=== PATIENT | female | born 1990 | race Caucasian/White ===

== ENCOUNTER 2018-06-12 15:56 | Emergency (ER) | payer MEDICAID ==
[2018-06-12 16:11] VITALS: BP 135/83
--- NOTE | 2018-06-12 16:47 | EDPHY ---
General Time Seen by Provider: 06/12/18 16:38 Narrative: CLINICAL IMPRESSION: Dentalgia ASSESSMENT/PLAN: 28-year-old otherwise healthy female presents with pain to her right upper incisor x1 week. No clinical signs to suggest gingival buccal abscess,ANUG, facial cellulitis or facial abscess. Patient will be treated with an antibiotic and pain medication. A referral to dental aid was provided. She has an appointment with a dentist but not until June 21 and I feel she needs dedicated dental x-rays prior to this. Warning signs return to ED sooner outlined and discharge. DIFFERENTIAL DX: Differential includes but not limited to periapical abscess, cavity, gingivitis , gingival buccal abscess, ANUG, facial cellulitis CHIEF COMPLAINT: Dental pain HPI: 28-year-old otherwise healthy female presents to the emergency department with atraumatic right upper incisor pain for the last week. Patient reports no trauma or recent dental injury or procedure. No facial swelling, erythema, warmth. Tolerating secretions well. No fevers or chills. She has an appointment with a dentist but not until June 21. PAST MEDICAL HISTORY: None reported See triage summary and nurse notes for addition applicable history Pertinent Past Surgical History: None reported Family History: Noncontributory Social History: Otherwise healthy nonsmoker REVIEW OF SYSTEMS: A full 10 point review of systems was negative except for those mentioned in HPI. PHYSICAL EXAM: General Appearance: Alert, oriented, appropriate, cooperative, NAD, well hydrated, non-toxic appearing, VSS, no hypoxia. HEENT: Oropharynx clear is no erythema or exudates, no tonsillar hypertrophy or asymmetry. Dentition without abnormality, reproducible pain to palpation along the right upper incisor. No gingivitis or gingival buccal abscess or fluctuance.] Skin: Warm, dry, no rashes, no nodules on palpation. MEDICAL DECISION MAKING: Patient was seen independently. Secondary supervising physician at time of evaluation was: Dr. Stacy. Diagnosis: Dentalgia. New, requires workup Summary: See Assessment and Plan for summary of ED visit Patient Progress: Stable for discharge. - History Smoking Status: Never smoked - Objective Vital Signs: Initial Vital Signs Temperature (C) 36.6 C 06/12/18 16:08 Heart Rate 69 06/12/18 16:08 Respiratory Rate 16 06/12/18 16:08 Blood Pressure 135/83 H 06/12/18 16:08 O2 Sat (%) 97 06/12/18 16:08 O2 Delivery Mode Room Air Allergies/Adverse Reactions: No Known Allergies Allergy (Unverified 06/12/18 16:11) Home Medications: Medication Instructions Recorded Hydrocodone/APAP 5/325 [Bogard 1 - 2 tab PO Q4H PRN #10 tab 06/12/18 5/325 (*)] Ibuprofen 06/12/18 Lexapro 06/12/18 Penicillin V Potassium [Pen Vk] 500 mg PO QID #28 tab 06/12/18 Departure - Departure Disposition: Home, Routine, Self-Care Clinical Impression: Dentalgia Condition: Good Instructions: Toothache (ED) Additional Instructions: DISCHARGE INSTRUCTIONS FROM YOUR DOCTOR Thank you for visiting our emergency department today. You were treated by a physician or assistant today and your case was reviewed with our ED Attending physician. Please keep in mind that discharge from the emergency department does not mean that there is nothing wrong - it simply means that we have not identified an emergency condition that requires further evaluation or treatment in the hospital. You should always plan to follow up with primary care for re- evaluation of your condition in the next 2-3 days. If you have been referred to a specialist, please call as soon as possible (today or tomorrow) to schedule your follow up appointment at the appropriate time. PLEASE TAKE ANTIBIOTICS DIRECTED. DO NOT DRIVE OR DRINK ALCOHOL WHILE TAKING NARCOTIC PAIN MEDICATION. PLEASE BE AWARE, NARCOTICS CAN CAUSE CONSTIPATION, LETHARGY, AND INCREASE YOUR RISK OF FALLING. DO NOT TAKE TYLENOL AT THE SAME TIME VICODIN OR PERCOCET. RETURN TO THE EMERGENCY DEPARTMENT FOR INCREASED PAIN, FACIAL SWELLING, FACIAL REDNESS, FEVER, TROUBLE SWALLOWING HER SECRETIONS OR ANY OTHER CONCERN. THE PHONE NUMBER FOR DENTAL AID IS [phone]. PLEASE CALL THEM FOR A FOLLOW-UP APPOINTMENT. People present with illnesses and injuries in different ways, and it is always possible that we have missed something. You may always return for re-evaluation if symptoms worsen or if they are not improving or if you develop new/different symptoms. Again, thank you for choosing our emergency department. We hope that you feel better. Referrals: BRYNN MOHAMUD [Primary Care Provider] - As per Instructions Prescriptions: Hydrocodone/APAP 5/325 [Bogard 5/325 (*)] 1 - 2 tab PO Q4H PRN #10 tab PRN Reason: Pain, Moderate Penicillin V Potassium [Pen Vk] 500 mg PO QID #28 tab
== END 2018-06-12 16:57 | disposition home or self-care (01) ==
DX: K08.89 Other specified disorders of teeth and supporting structures (principal)